=== PATIENT | female | born 1985 | race Caucasian/White ===

== ENCOUNTER 2016-10-20 22:19 | Emergency (ER) | payer OTHER ==
--- NOTE | 2016-10-20 23:07 | PD ---
HPI Chief Complaint Complains of cramping and then spotting some today Date Seen: October 20, 2016 Travel History International Travel<30 Days: No Contact w/Intl Traveler<30Days: No Known Affected Area: No History of Present Illness HPI Patient is 31-year-old white female at 27 weeks resents complaining of crampy pain for the last several days and then spotting noted today. Bleeding was minimal and only noted when she wiped. Her baby is active heart rate tracing is reactive and there are no contractions she denies any leakage of fluid or heavy vaginal bleeding. Patient sees Dr. Patel for care. Para: 0 : 1 History Social History Narrative Social History Is a athletics teacher Alcohol Use: No Tobacco Use: No Substance Abuse: No Allergies-Medications (Allergen,Severity, Reaction): Coded Allergies: No Known Allergies (Unverified , 10/20/16) Review of Systems General / Constitutional: No: Fever, Weight Gain, Chills, Other Eyes: No: Diploplia, Blurred Vision, Visual changes, Pain, Photophobia HENT: No: Headaches, Vertigo, Lightheadedness Cardiovascular: No: Irregular Rhythm, Chest Pain or Discomfort, Palpitations, Tachycardia, Syncope, Varicosities, Edema, Cyanosis Respiratory: No: Cough, Short of Breath, Other Gastrointestinal: Abdominal Pain, No: Nausea, Vomiting, Diarrhea Genitourinary: Vaginal Bleeding, No: Decreased Urinary Output, Oliguria Musculoskeletal: No: Limited ROM, Weakness, Cramping, Edema, Pain Skin: No Rash, No Itching, No Dryness, No Lumps, No Change in Pigmentation, No Change in Nails, No Alopecia, No Lesions Neurologic: No: Weakness, Dizziness, Syncope, Focal Abnormalities, Coordination Problem, Headache, Slurred Speech, Seizures Psychiatric: No: Depression, Suicidal Ideations, Homicidal Ideation Endocrine: No: Heat Intolerance, Cold Intolerance, Polydipsia, Polyuria, Other Physical Exam Narrative GENERAL: Well-nourished, well-developed patient. SKIN: Warm and dry. HEAD: Normocephalic and atraumatic. EYES: No scleral icterus. No injection or drainage. ENT: No nasal drainage noted. Mucous membranes pink. Airway patent. NECK: Supple, trachea midline. No JVD. CARDIOVASCULAR: Regular rate and rhythm without murmurs, gallops, or rubs. RESPIRATORY: Breath sounds equal bilaterally. No accessory muscle use. BREASTS: Bilateral exam showed no masses , no retractions, no nipple discharge. ABDOMEN/GI: Abdomen soft, non-tender, bowel sounds present, no rebound, no guarding Gravid to [-28] weeks size Fundal Height: [28-] GENITOURINARY: External Genitalia: intact and normal in appearance On vaginal exam there is some old brown blood in the vagina, minimal amount no red blood noted on the exam glove or in the vagina Cervix: [-Closed] Dilatation: [-] Closed Effacement: [-] Thick Station: [-3] Membranes: [intact ] Uterine Contractions: [-none] FHT's: Category: [1-] Baseline: [-144] Reactive: [-yes] Variability: [-mod] Decels: [-none] EXTREMITIES: No cyanosis or edema. BACK: Nontender without obvious deformity. No CVA tenderness. NEUROLOGICAL: Awake and alert. Motor and sensory grossly within normal limits. Five out of 5 muscle strength in all muscle groups. Normal speech. Data Data Orders Vital Signs (Adult) .ON ADMISSION (10/20/16 22:53) ^ Labor Status (10/20/16 22:53) Urinalysis - C+S If Indicated (10/20/16 22:53) MDM Interpretation(s) The patient is 31-year-old white female at 27 weeks gestation who presents combining of lower abdominal pain for several days and spotting today. Her bleeding is been minimal and only noted when she wipes with toilet paper. And on exam the night her bleeding is only old dark brown blood no red blood or fresh bleeding or active bleeding noted. heart tones within normal limits no contractions seen on exam her cervix is closed and posterior and only some brownish old blood noted on the exam glove no red bleeding noted urinalysis is pending at time of this dictation but that if that is positive and will treat with antibiotics. Plan Plan to observe the patient for any discomforts of offer pain medications hydrate her with by mouth fluids, she is encouraged use Tylenol for pain at home. 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 She will be discharged and follow up with her OB provider is as scheduled or sooner if symptoms persist Diagnosis Diagnosis: Primary Impression: Abdominal pain during in second trimester Additional Impression: Spotting affecting in second trimester Disposition: 01 DISCHARGE HOME Condition: Stable Patient Instructions: General Instructions Additional Instructions: RETURN FOR CONTRACTIONS, LOSS OF FLUID (WATER BREAKING), VAGINAL BLEEDING, OR DECREASED MOVEMENT DRINK 8-10 LARGE GLASSES OF WATER EVERY DAY KEEP SCHEDULED APPOINTMENT WITH YOUR PROVIDER Departure Forms: Tests/Procedures Russell Henderson II, MD October 20, 2016 23:07
[2016-10-20 23:09] LABS: BACTERIA, URINE RARE /hpf; BLOOD, URINE NEG (NEG); COMMENT (UR) CULT NOT INDICATED; CULTURE IF INDICATED CULT NOT INDICATED; GLUCOSE,URINE NEG (NEG); KETONE, URINE NEG (NEG); NITRITE,URINE NEG (NEG); SQUAMOUS EPITHELIAL CELL URINE <1 /hpf (0-5); URINE COLOR LIGHT-YELLOW (YELLW/STRAW)
== END 2016-10-21 06:46 | disposition home or self-care (01) ==
LOC: HOBED 22:19
DX: O26.852 Spotting complicating pregnancy, second trimester (principal); R10.9 Unspecified abdominal pain
CPT/HCPCS: 81001; 99284

== ENCOUNTER 2016-12-23 23:22 | Inpatient (IN) | payer OTHER ==
[~2016-12-23] VITALS: Ht 162.6 cm; Wt 105.2 kg
[2016-12-23] MEDS ORDERED: PREN1MIS19 (23:51)
[2016-12-23] MEDS ORDERED: ZANT150T2 PO (23:52)
[2016-12-24] VITALS (41 sets, daily range): BP systolic 109–166; BP diastolic 62–112; PULSE 73–102; RESP 16–20; TEMP 97.6–99; O2SAT 100
[2016-12-24] MEDS ORDERED: METH250T PO (00:11)
[2016-12-24] MEDS ORDERED: LACTATED RINGER'S 1000 ML INJ 1,000 ML IV PRN (00:14)
--- NOTE | 2016-12-24 00:14 | HHI.HP ---
History & Physical H&P HPI HPI Travel History International Travel<30 Days: No Contact w/Intl Traveler<30Days: No Known Affected Area: No History of Present Illness HPI Patient is a 31-year-old 1 para 0 EDC is January 16, 2017 presently at 36 weeks and 4 days she presents the chief complaint of spontaneous rupture of membranes at 10 PM, patient is grossly ruptured and the amnisure is positive No contractions states the baby is not moving that much however there is a category 1 tracing care with course is significant for failing the 1 hour GTT however the three-hour test was normal Blood pressure was elevated during this she was placed on Aldomet 250 mg by mouth twice a day History (Limited) History Past Medical History Narrative Medical No known drug allergies history of elevated blood pressure hypertension and migraines Obstetric History Obstetric History First baby Past Surgical History Surgical History: No Previous Surgery Family History Narrative Family History Diabetes and heart disease Social History Alcohol Use: No Tobacco Use: Yes Substance Abuse: No Allergies-Medications Allergies-Medications (Allergen,Severity, Reaction): Coded Allergies: No Known Allergies (Unverified , 12/23/16) Home Meds Reported Medications Ranitidine (Zantac)150 Mg Noo287 Mg PO BID #60 TAB Ref 0 12/23/16 Vit W/ Ferrous Fumara (Pnv Plus Multivi 27-1 & 312 mg)1 Mis Mis Daily 12/23/16 ROS Review of Systems Genitourinary: Other (rupture of membranes as per history of present illness) Physical Exam Physical Exam Narrative GENERAL: Well-nourished, well-developed patient. Alert oriented 3 and cooperative in no acute distress SKIN: Warm and dry. HEAD: Normocephalic and atraumatic. EYES: No scleral icterus. No injection or drainage. ENT: No nasal drainage noted. Mucous membranes pink. Airway patent. NECK: Supple, trachea midline. No JVD. CARDIOVASCULAR: Regular rate and rhythm without murmurs, gallops, or rubs. RESPIRATORY: Breath sounds equal bilaterally. No accessory muscle use. ABDOMEN/GI: Abdomen is gravid consistent with 37 weeks obese soft no epigastric or right upper quadrant tenderness no palpable contractions Gravid to [-] weeks size consistent with gestational age Fundal Height: [-] GENITOURINARY: Gross fluid per vagina External Genitalia: intact and normal in appearance BUS glands: [-] Cervix: [-] Posterior soft Dilatation: [-] 1 cm Effacement: [-] 60% effaced Station: [-] -3 station Presentation: [-] Vertex Membranes: [ ruptured] clear fluid Uterine Contractions: [-]0 FHT's: Category: [-] 1 Baseline: [-] 130 Reactive: [-] + Accelerations to 145 Variability: [-] Moderate Decels: [-] 0 EXTREMITIES: No cyanosis or edema. 2+ reflexes NEUROLOGICAL: Awake and alert. Motor and sensory grossly within normal limits. Five out of 5 muscle strength in all muscle groups. Normal speech. Data Data Data Vital Signs Reviewed: Yes (blood pressures 131/83 pulse is 101 she is afebrile) Orders Ob (2e) Additional Admit Info (12/23/16 23:49) Vital Signs (Adult) .ON ADMISSION (12/24/16 00:05) ^ Labor Status (12/24/16 00:05) Urinalysis - C+S If Indicated (12/24/16 00:05) ^ Hydration (12/24/16 00:05) Labs Category 1 tracing MDM MDM Medical Record Reviewed: No Interpretation(s) 31-year-old at 36 weeks and 4 days premature rupture membranes Obesity Hypertension Smoker Plan External monitoring Admit CBC CMP uric acid urinalysis type and screen Group B strep PCR swab Will start penicillin however if GBS is negative will discontinue Pitocin augmentation of labor to begin at 6 AM if contractions have not started on the wrong Discussed with Dr. Noonan Physician Communication Spoke with Dr. Noonan he agrees with evaluation and management sedates to begin Pitocin at 6 AM if contractions have not started by then Diagnosis Diagnosis: Primary Impression: with 36 completed weeks gestation Additional Impressions: premature rupture of membranes Qualified Code: O42.919 - premature rupture of membranes, unspecified duration to onset of labor Hypertension Qualified Code: I10 - Essential hypertension Vickie Posey MD Dec 24, 2016 00:13 Vickie Posey MD Dec 24, 2016 00:14
[2016-12-24] MEDS ORDERED: CITRIC ACID-SODIUM CITRATE LIQ 30 ML UDC PO SCH ×2 (00:15→19:00)
[2016-12-24] MEDS ORDERED: SODIUM CHLORID 0.9% 500 ML INJ 500 ML IV PRN (00:15)
[2016-12-24] MEDS ORDERED: OXYTOCIN 30 UNITS-500ML PREMIX 500 ML IV ONE ×2 (00:15→19:30)
[2016-12-24] MEDS ORDERED: LIDOCAINE HCL 1% 50 ML VIAL I-DERMAL PRN (00:15)
[2016-12-24] MEDS ORDERED: PENICILLIN G POTASSIUM INJ 5,000,000 UNITS in SODIUM CHLORIDE 0.9% INJ 100 ML IV ONE (00:15)
[2016-12-24] MEDS ORDERED: MINERAL OIL 10 ML VIAL TOPICAL PRN (00:15)
[2016-12-24] MEDS ORDERED: LIDOCAINE HCL 1% 50 ML VIAL INFIL PRN (00:15)
[2016-12-24] MEDS ORDERED: SODIUM CHLOR 0.9% 1000 ML INJ 1,000 ML IV PRN (00:34)
[2016-12-24 01:06] LABS: AUTOMATED NEUTROPHIL # 11.2 TH/MM3 (1.8-7.7); BASOPHIL % 0.2 % (0.0-2.0); EOSINOPHIL # 0.1 TH/MM3 (0-0.4); EOSINOPHIL % 1.1 % (0.0-4.0); HEMATOCRIT 33.5 % (35.0-46.0); HEMO FLAGS DIFF FINAL; LYMPH % 13.1 % (9.0-44.0); LYMPHOCYTE # 1.9 TH/MM3 (1.0-4.8); MEAN CELL VOLUME 90.1 FL (80.0-100.0); MEAN CORPUSCULAR HEMOGLOBIN 31.3 PG (27.0-34.0); MEAN CORPUSCULAR HGB CONC 34.8 % (32.0-36.0); MONO % 6.6 % (0.0-8.0); PLATELET COUNT 224 TH/MM3 (150-450); RED BLOOD COUNT 3.72 MIL/MM3 (4.00-5.30); RED CELL DISTRIBUTION WIDTH 13.7 % (11.6-17.2); WHITE BLOOD COUNT 14.2 TH/MM3 (4.0-11.0)
[2016-12-24 01:21] LABS: BACTERIA, URINE RARE /hpf; BLOOD, URINE SMALL (NEG); COMMENT (UR) CULT NOT INDICATED; CULTURE IF INDICATED CULT NOT INDICATED; GLUCOSE,URINE NEG (NEG); KETONE, URINE NEG (NEG); NITRITE,URINE NEG (NEG); SQUAMOUS EPITHELIAL CELL URINE 5 /hpf (0-5); URINE COLOR YELLOW (YELLW/STRAW)
[2016-12-24 01:45] LABS: ALT (GPT) 21 U/L (10-53); ANION GAP 9 MEQ/L (5-15); AST (GOT) 13 U/L (15-37); BICARBONATE 23.9 MEQ/L (21.0-32.0); BLOOD UREA NITROGEN 10 MG/DL (7-18); CHLORIDE 106 MEQ/L (98-107); GLOMERULAR FILTRATION RATE 120 ML/MIN (>89); POTASSIUM 3.8 MEQ/L (3.5-5.1); SODIUM (NA) 139 MEQ/L (136-145); URIC ACID 4.3 MG/DL (2.6-6.0)
[2016-12-24 01:48] LABS: ALKALINE PHOSPHATASE 86 U/L (45-117); TOTAL BILIRUBIN ADULT 0.2 MG/DL (0.2-1.0)
[2016-12-24] MEDS: LACTATED RINGER'S 1000 ML INJ 1,000 ML IV SCH ×2 (02:00→08:14)
[2016-12-24] MEDS ORDERED: PENICILLIN G POTASSIUM INJ 2,500,000 UNITS in SODIUM CHLORIDE 0.9% INJ 100 ML IV SCH ×2 (04:15→17:00)
[2016-12-24] MEDS ORDERED: OXYTOCIN 30 UNITS-500ML PREMIX 500 ML IV SCH (06:00)
[2016-12-24] MEDS ORDERED: fentaNYL 2MCG-BUPIV 0.125% INJ 100 ML ONE (10:15)
[2016-12-24] MEDS ORDERED: ePHEDrine/NS 25 MG/5 ML SYR ONE (10:21)
[2016-12-24] MEDS: LABETALOL HCL 100 MG TAB PO SCH (11:45)
--- NOTE | 2016-12-24 11:45 | PD.LABORPN ---
Subjective Subjective pt comfortable with epidural now Objective Vital Signs Vital Signs Date Time Temp Pulse Resp B/P Pulse Ox O2 Delivery O2 Flow Rate FiO2 12/24/16 11:31 76 147/82 12/24/16 10:43 97.6 18 12/24/16 10:40 83 139/70 12/24/16 10:31 96 163/88 12/24/16 10:30 85 12/24/16 10:25 102 12/24/16 10:22 98 162/108 12/24/16 10:20 87 12/24/16 10:01 84 141/94 12/24/16 09:31 84 166/89 12/24/16 09:30 16 12/24/16 09:19 84 148/86 12/24/16 08:31 82 153/86 12/24/16 08:31 98.4 18 12/24/16 08:07 81 155/86 12/24/16 08:01 73 12/24/16 07:31 83 159/95 12/24/16 07:01 80 142/83 12/24/16 06:30 98.2 18 12/24/16 06:30 90 158/112 12/24/16 06:26 83 149/81 Objective Pelvic Exam: Cervix:3/90/-3 lot Membranes ruptured 2300 Uterine Contractions: 3-5 min FHT's: Category: I Baseline: [-] Reactive: [-] Variability: [-] Decels: [-] Assessment/Plan Assessment and Plan 31 yo G1 with iup at 36w4d with prom 1) PROM- iol with pitocin, GBS neg 2) GHTN- on aldomet at home, weekly labs and testing. BP elevated with some severe range and 1+ protein, No previous proteinuria in office. Meets criteria for Pre-E. Labetalol 100mg bid. 3) Failed 1 hr gct, normal 3 hr gtt. 4) Abn quad, elevated risk for Down syndrome, neg cfDNA Zoë Porter MD Dec 24, 2016 11:44
[2016-12-24] MEDS ORDERED: ePHEDrine/NS 25 MG/5 ML SYR IV PRN (12:15)
[2016-12-24] MEDS ORDERED: fentaNYL 2MCG-BUPIV 0.125% 100 ML EPIDURAL SCH (12:15)
[2016-12-24] MEDS ORDERED: DO NOT ADMINISTER ANTICOAGULANTS PRN (12:15)
[2016-12-24] MEDS ORDERED: NO SYSTEM NARCOTICS PRN (12:15)
[2016-12-24] MEDS ORDERED: LACTATED RINGER'S 1000 ML INJ 1,000 ML IV ONE (17:26)
--- NOTE | 2016-12-24 17:31 | PD.LABORPN ---
Subjective Subjective Pt is having increased pain Objective Vital Signs Vital Signs Date Time Temp Pulse Resp B/P Pulse Ox O2 Delivery O2 Flow Rate FiO2 12/24/16 17:02 20 12/24/16 17:00 20 12/24/16 16:41 98 149/89 12/24/16 16:00 97.6 12/24/16 15:59 98 136/75 12/24/16 15:59 20 12/24/16 15:25 98 20 131/65 12/24/16 14:31 82 164/94 12/24/16 14:30 20 12/24/16 14:01 91 141/82 12/24/16 13:31 89 146/85 12/24/16 13:01 87 127/80 12/24/16 12:31 89 109/62 12/24/16 12:01 83 112/66 12/24/16 11:31 76 147/82 12/24/16 11:01 88 140/75 12/24/16 10:43 97.6 18 12/24/16 10:40 83 139/70 12/24/16 10:31 96 163/88 12/24/16 10:30 85 12/24/16 10:25 102 12/24/16 10:22 98 162/108 12/24/16 10:20 87 12/24/16 10:01 84 141/94 12/24/16 09:31 84 166/89 Objective Pelvic Exam: Cervix:5-6/80/-2. edema of cervix noted. LOT to OP presentation with molding present Membranesuptured] Uterine Contractions:adequate MVU FHT's: Category I Variability: mod Decels: [-] Assessment/Plan Assessment and Plan 31 yo G1 with iup at 36w5d with prom 1) PROM- iol with pitocin, GBS neg. She has arrest of dilation, likely cpd. Discussed findings of cervical edema, no exchange underwriting consultant last 2 checks, and molding ; discussed cd is best choice at this time. PT and mother agreeable to plan. 2) GHTN- on aldomet at home, weekly labs and testing. BP elevated with some severe range and 1+ protein, No previous proteinuria in office. Meets criteria for Pre-E. Labetalol 100mg bid started. 3) Failed 1 hr gct, normal 3 hr gtt. 4) Abn quad, elevated risk for Down syndrome, neg cfDNA Zoë Porter MD Dec 24, 2016 17:31
[2016-12-24] MEDS ORDERED: OXYTOCIN 10 UNIT/ML AMP ONE (17:50)
[2016-12-24] MEDS ORDERED: LACTATED RINGER'S 1000 ML INJ 1,000 ML IV SCH (18:00)
[2016-12-24] MEDS ORDERED: EPIDURAL-DIPHENHYDRAMINE HCL 50 MG/ML VIAL IV PUSH PRN (18:30)
[2016-12-24] MEDS ORDERED: ceFAZolin 2 GM PREMIX 50 ML IV SCH (18:30)
[2016-12-24] MEDS ORDERED: EPIDURAL-DO NOT ADMINISTER ANTICOAGULANTS PRN (18:30)
[2016-12-24] MEDS ORDERED: EPIDURAL-NO SYSTEMIC NARCOTICS PRN (18:30)
[2016-12-24] MEDS ORDERED: LIDOCAINE HCL PF 2% VIAL EPIDURAL ONE (18:30)
[2016-12-24] MEDS ORDERED: SODIUM BICARBONATE 8.4% INJ 50 MEQ/50 ML SYR IV PUSH ONE (18:30)
[2016-12-24] MEDS ORDERED: EPIDURAL-NALOXONE HCL 0.4 MG/ML AMP IV PRN (18:30)
[2016-12-24] MEDS ORDERED: EPIDURAL-DIPHENHYDRAMINE HCL 50 MG CAP PO PRN (18:30)
[2016-12-24] MEDS ORDERED: MORPHINE SULFATE PF 5 MG/10 ML VIAL ONE (19:13)
[2016-12-24] MEDS ORDERED: ONDANSETRON HCL 4 MG/2 ML VIAL ONE (19:14)
--- NOTE | 2016-12-24 19:25 | PD.OB.DELI ---
Procedure Note Section Procedure Pre Op Diagnosis: (1) with 36 completed weeks gestation (2) premature rupture of membranes (3) Pre-eclampsia superimposed on chronic hypertension (4) Arrested active phase of labor Post Op Diagnosis: (1) with 36 completed weeks gestation (2) premature rupture of membranes (3) Pre-eclampsia superimposed on chronic hypertension (4) Arrested active phase of labor Performed by Zoë Porter Procedure: Primary Low Transverse Sec Indication for delivery: malposition (OP, asynclitic) Informed consent obtained: For anesthesia, For procedure Confirmed correct: Patient, Procedure, Site, Time-out taken Anesthesia: Epidural Medication prior to procedure: As documented in eMAR Monitoring during procedure: Blood pressure monitoring, Pulse oximetry Urinary catheter: Inserted using sterile technique, To dependent drainage, ml urine output (400) Sterile preparation: Duraprep Position: Supine with wedge to right side, Supine with safety belt applied Operative Features Skin Incision: Pfannenstiel Uterine Incision: Low transverse w/knife / blunt ext Membranes Ruptured: Previously, Appearance of fluid (clear) Presentation: Occiput posterior Delivery of infant: Uneventful : Female One Minute : 9 Five Minute : 9 Weight: 3120g Status of : Viable, Cord blood Placenta delivered: Retained (manual removal, sharp curettage performed), Sent to pathology Medications: Antibiotics, Oxytocin Estimated blood loss: 600ml Procedure tolerated: Well Maternal Condition: Stable Condition: Stable Procedure in detail dictated Zoë Porter MD Dec 24, 2016 19:25
[2016-12-24] MEDS ORDERED: ACETAMINOPHEN 1000 MG/100 ML VIAL IV ONE ×2 (19:30→19:55)
[2016-12-24] MEDS ORDERED: ZOLPIDEM TARTRATE 5 MG TAB PO PRN (19:30)
[2016-12-24] MEDS ORDERED: SIMETHICONE 80 MG CHEWABLE TAB PO PRN (19:30)
[2016-12-24] MEDS ORDERED: SODIUM CHLORIDE 0.9% FLUSH 10 ML FLUSH IV FLUSH PRN (19:30)
[2016-12-24] MEDS ORDERED: ACETAMINOPHEN 325 MG TAB PO PRN (19:30)
[2016-12-24] MEDS ORDERED: ONDANSETRON HCL 4 MG/2 ML VIAL IV PUSH PRN (19:30)
[2016-12-24] MEDS ORDERED: OXYTOCIN 30 UNITS-500ML PREMIX 500 ML ONE (19:55)
[2016-12-24] MEDS ORDERED: SODIUM CHLORIDE 0.9% FLUSH 10 ML FLUSH IV FLUSH SCH (21:00)
[2016-12-25] MEDS ORDERED: LACTATED RINGER'S 1000 ML INJ 1,000 ML IV SCH (00:16)
[2016-12-25 00:30] VITALS: BP 128/71; PULSE 83; RESP 18; TEMP 99.2
[2016-12-25 04:55] VITALS: BP 113/77; PULSE 91; RESP 18; TEMP 99.2
[2016-12-25] MEDS ORDERED: OXYTOCIN 30 UNITS-500ML PREMIX 500 ML IV PRN (05:30)
[2016-12-25] MEDS: IBUPROFEN 600 MG TAB PO PRN ×3 (05:38→18:19)
[2016-12-25] MEDS: oxyCODONE/ACETAMINOPHEN 5 MG/325 MG TAB PO PRN ×3 (05:38→22:48)
[2016-12-25 06:16] LABS: AUTOMATED NEUTROPHIL # 10.1 TH/MM3 (1.8-7.7); BASOPHIL % 0.3 % (0.0-2.0); EOSINOPHIL # 0.1 TH/MM3 (0-0.4); EOSINOPHIL % 0.8 % (0.0-4.0); HEMO FLAGS DIFF FINAL; LYMPH % 9.7 % (9.0-44.0); LYMPHOCYTE # 1.2 TH/MM3 (1.0-4.8); MEAN CELL VOLUME 90.7 FL (80.0-100.0); MEAN CORPUSCULAR HEMOGLOBIN 31.5 PG (27.0-34.0); MEAN CORPUSCULAR HGB CONC 34.7 % (32.0-36.0); MONO % 7.3 % (0.0-8.0); NEUT % 81.9 % (16.0-70.0); PLATELET COUNT 156 TH/MM3 (150-450); RED CELL DISTRIBUTION WIDTH 13.7 % (11.6-17.2); WHITE BLOOD COUNT 12.4 TH/MM3 (4.0-11.0)
--- NOTE | 2016-12-25 07:57 | HHI.OB ---
Subjective Post Operative Day: 1 Remarks Doing well resting daughter in normal nursery Objective Vitals/I&O Vital Signs Date Time Temp Pulse Resp B/P Pulse Ox O2 Delivery O2 Flow Rate FiO2 12/25/16 04:55 99.2 91 18 113/77 12/25/16 00:30 99.2 83 18 128/71 12/24/16 21:10 98.9 93 18 124/75 12/24/16 20:15 18 100 12/24/16 20:15 99.0 12/24/16 20:15 93 150/70 12/24/16 20:00 100 12/24/16 20:00 94 18 134/64 12/24/16 19:31 123/75 12/24/16 19:31 91 20 100 12/24/16 19:13 117/63 12/24/16 19:13 92 18 100 12/24/16 19:12 98.8 12/24/16 17:02 20 12/24/16 17:00 20 12/24/16 16:41 98 149/89 12/24/16 16:00 97.6 12/24/16 15:59 98 136/75 12/24/16 15:59 20 12/24/16 15:25 98 20 131/65 12/24/16 14:31 82 164/94 12/24/16 14:30 20 12/24/16 14:01 91 141/82 12/24/16 13:31 89 146/85 12/24/16 13:01 87 127/80 12/24/16 12:31 89 109/62 12/24/16 12:01 83 112/66 12/24/16 11:31 76 147/82 12/24/16 11:01 88 140/75 12/24/16 10:43 97.6 18 12/24/16 10:40 83 139/70 12/24/16 10:31 96 163/88 12/24/16 10:30 85 12/24/16 10:25 102 12/24/16 10:22 98 162/108 12/24/16 10:20 87 12/24/16 10:01 84 141/94 12/24/16 09:31 84 166/89 12/24/16 09:30 16 12/24/16 09:19 84 148/86 12/24/16 08:31 82 153/86 12/24/16 08:31 98.4 18 12/24/16 08:07 81 155/86 12/24/16 08:01 73 Result Diagram: 12/25/16 0528 12/24/16 0040 Objective Remarks GENERAL: Well-nourished, well-developed patient. CARDIOVASCULAR: Regular rate and rhythm without murmurs, gallops, or rubs. RESPIRATORY: Breath sounds equal bilaterally. No accessory muscle use. ABDOMEN/GI: Abdomen soft, non-tender, bowel sounds present. Incision: Clean, dry and intact. gary in place Fundus: Firm, non-tender at umbilicus. GENITOURINARY: Light to moderate bleeding. EXTREMITIES: No cyanosis 2+ edema non-tender, without signs of DVT. Medications and IVs Current Medications Medications (Trade) Dose Ordered Sig/Pipo Route Start Time Stop Time Status Last Admin Labetalol HCl 100 mg 100 mg Q12HR PO 12/24/16 09:00 12/24/16 11:45 (Lr 1000 ml Inj) 1,000 ml @ 100 mls/hr Q10H IV 12/25/16 00:16 12/25/16 20:15 (NS Flush) 2 ml BID IV FLUSH 12/24/16 21:00 (NS Flush) 2 ml UNSCH PRN IV FLUSH 12/24/16 19:30 (Mylicon Chew) 80 mg QID PRN PO 12/24/16 19:30 (Tylenol) 650 mg Q6H PRN PO 12/24/16 19:30 (Motrin) 600 mg Q6H PRN PO 12/24/16 19:30 12/25/16 05:38 (Percocet 5-325 Mg) 1 tab Q4H PRN PO 12/24/16 19:30 12/25/16 05:38 (Percocet 5-325 Mg) 2 tab Q4H PRN PO 12/24/16 19:30 (Danielle-Colace) 2 tab Q12H PRN PO 12/24/16 19:30 (Ambien) 5 mg HS PRN PO 12/24/16 19:30 (M-M-R Ii Inj) 0.5 ml ONCE ONCE SQ 12/25/16 16:00 12/25/16 16:01 (Boostrix Inj) 0.5 ml ONCE ONCE IM 12/25/16 16:00 12/25/16 16:01 (Zofran Inj) 4 mg Q6H PRN IV PUSH 12/24/16 19:30 Miscellaneous Information NO SYSTEMIC NARCOTICS TO BE GIVEN FO... UNSCH PRN .XX 12/24/16 18:30 12/25/16 18:29 (Narcan Inj) 0.4 mg UNSCH PRN IV 12/24/16 18:30 12/25/16 18:29 (Benadryl Inj) 25 mg Q6H PRN IV PUSH 12/24/16 18:30 12/25/16 18:29 (Benadryl) 50 mg Q6H PRN PO 12/24/16 18:30 12/25/16 18:29 Miscellaneous Information ALL NURSING DEPARTMENTS UNSCH PRN .XX 12/24/16 18:30 12/25/16 18:29 Assessment/Plan Assessment and Plan unremarkable POD 1 advance as tolerated anticipate discharge POD 3 Maribell Patel MD Dec 25, 2016 07:57
[2016-12-25] MEDS: LABETALOL HCL 100 MG TAB PO SCH ×2 (09:00→22:48)
[2016-12-25 09:45] VITALS: BP 148/88; PULSE 90; RESP 18; TEMP 99.1
--- NOTE | 2016-12-25 10:54 | MP ---
cc: FARRAH PORTER MD DATE OF SURGERY 12/24/2016 PREOPERATIVE DIAGNOSES 1. Intrauterine at 36 weeks and 5 days. 2. Preeclampsia. 3. Premature rupture of membranes. 4. Arrest of dilation. 5. Malpresentation OP. 6. Abnormal 1 hour GCT with a normal 3 hour. 7. Abnormal Quad screen with normal cell-free DNA testing. POSTOPERATIVE DIAGNOSES 1. Intrauterine at 36 weeks and 5 days. 2. Preeclampsia. 3. Premature rupture of membranes. 4. Arrest of dilation. 5. Malpresentation OP. 6. Abnormal 1 hour GCT with a normal 3 hour. 7. Abnormal Quad screen with normal cell-free DNA testing. PROCEDURE PERFORMED Primary low transverse delivery. SURGEON Farrah Porter MD QC ANALYST [employer] ANESTHESIA Epidural. IV FLUIDS 1500 mL of lactated Ringer's ESTIMATED BLOOD LOSS 600 mL. URINE OUTPUT 400 mL clear yellow urine at the end of the case. SPECIMEN SENT Cord blood. COMPLICATIONS None. COUNTS Correct x 3. PREOPERATIVE ANTIBIOTIC Ancef 2 grams IV given pre-incision. DVT PROPHYLAXIS SCDs about her extremities. INTRAOPERATIVE FINDINGS 1. Viable female with Apgars of 9 and 9 at 1 minute and 5 minutes respectively. 2. Loose cord around neck. 3. Presentation LOP, occiput left posterior. 4. Asynclitic. 5. Amniotic fluid clear. 6. Placenta very aged in appearance. A segment was abnormally adherent, was removed manually. 7. Maternal anatomy - tubes, uterus and ovaries within normal limits. PROCEDURE IN DETAIL After review of informed consent, the patient was taken to the operating room where epidural was re-dosed. A Nash was already in place. The abdomen was prepped and draped in normal sterile fashion. Retractors were placed to aid with retraction. A Pfannenstiel skin incision was made with a scalpel and carried down to the underlying layer of fascia with the Bovie. The Bovie was incised in the midline. This is extended bilaterally with Medel scissors. There was a perforating fractal vessel that was bleeding on the right lower aspect of the rectus muscle. Attempts at Bovie coagulation was performed. Due to continued bleeding, a [id number] with 2-0 chromic was performed with good hemostasis. Gladys clamps were placed on the superior aspect of the fracture and rectus muscles dissected off bluntly. The same was repeated inferiorly. The rectus muscles were in the midline. The peritoneum was entered bluntly and extended bluntly. The bladder blade was placed. The bladder flap was created with Metzenbaum scissors and further developed with the index finger. The bladder blade was then replaced. A low transverse uterine incision was made with the scalpel. This incision was extended bluntly. The head was brought to the level of the hysterotomy. Gentle fundal pressure was used to deliver the head. There was a loose cord around the neck; this was reduced. Gentle fundal pressure was used to delivery the rest of the body. Cord clamping was performed immediately. The infant was handed off to awaiting nursery team. Pitocin infusion was started immediately after delivery of the infant. Gentle uterine massage and cord traction was used to deliver the majority of the placenta. One portion of the placenta was still adherent. The uterus was exteriorized and a hand was placed between the placenta and the uterus to remove the remaining . Then moistened lap was used to clear the remaining membranes. A sharp curettage was performed to ensure the remaining products was present. Irrigation of the uterine cavity was performed and then a moist laparotomy sponge used again to clean the uterine cavity. The uterus was closed in two layers, the first with a running locked layer followed by a second running layer. Good hemostasis was noted. The posterior cul-de-sac was irrigated and suctioned. The uterus was returned to the abdomen. Good hemostasis was noted in the hysterotomy. The anterior cul-de-sac was irrigated and suctioned. The peritoneum was closed with 2-0 chromic in a running fashion. The fascia was closed with #1 Vicryl in a running fashion with two separate sutures. The subcutaneous layer was irrigated and good hemostasis was noted. The subcutaneous layer was closed with two layers of 2-0 chromic. The skin was closed with gary. A pressure dressing was placed. The patient tolerated the procedure well. She was sent to the PACU in stable condition. She had normal blood pressures to mild range blood pressures throughout the entire procedure. Farrah Porter MD PE/PIPE /7:17 PM /10:17 AM
[2016-12-25] MEDS: DOCUSATE SODIUM 50 MG/SENNA 8.6 MG TAB PO PRN (12:46)
[2016-12-25 13:08] VITALS: BP 138/78; PULSE 86; RESP 16; TEMP 98.3
[2016-12-25] MEDS ORDERED: MEASLES, MUMPS, RUBELLA VACCINE 0.5 ML VIAL SQ ONE (16:00)
[2016-12-25] MEDS ORDERED: DIPHTH/TETANUS/ACEL PERTUSSIS (BOOSTER) 0.5 ML VIAL/PFS IM ONE (16:00)
[2016-12-25 22:00] VITALS: BP 141/78; PULSE 83; RESP 18; TEMP 98.4
[2016-12-26] MEDS: IBUPROFEN 600 MG TAB PO PRN ×3 (01:47→15:00)
[2016-12-26] MEDS: oxyCODONE/ACETAMINOPHEN 5 MG/325 MG TAB PO PRN ×4 (05:20→19:46)
[2016-12-26 08:06] VITALS: BP 148/80; PULSE 94; RESP 16; TEMP 98.2
[2016-12-26] MEDS: DOCUSATE SODIUM 50 MG/SENNA 8.6 MG TAB PO PRN (09:32)
[2016-12-26] MEDS: LABETALOL HCL 100 MG TAB PO SCH ×2 (09:33→21:50)
[2016-12-26 11:00] VITALS: BP 144/81
--- NOTE | 2016-12-26 11:24 | HHI.OB ---
Subjective Post Operative Day: 2 Remarks POD#2, Stable, no significant c/o Objective Vitals/I&O Vital Signs Date Time Temp Pulse Resp B/P Pulse Ox O2 Delivery O2 Flow Rate FiO2 12/26/16 08:06 94 16 148/80 12/26/16 08:06 98.2 12/25/16 22:00 98.4 83 18 141/78 12/25/16 13:08 98.3 86 16 138/78 Result Diagram: 12/25/16 0528 12/24/16 0040 Objective Remarks GENERAL: Well-nourished, well-developed patient. CARDIOVASCULAR: Regular rate and rhythm without murmurs, gallops, or rubs. RESPIRATORY: Breath sounds equal bilaterally. No accessory muscle use. ABDOMEN/GI: Abdomen soft, non-tender, bowel sounds present. Incision: Clean, dry and intact. gary in place Fundus: Firm, non-tender at umbilicus. GENITOURINARY: Light to moderate bleeding. EXTREMITIES: No cyanosis 2+ edema non-tender, without signs of DVT. Medications and IVs Current Medications Medications (Trade) Dose Ordered Sig/Pipo Route Start Time Stop Time Status Last Admin (Trandate) 100 mg Q12HR PO 12/24/16 09:00 12/26/16 09:33 (NS Flush) 2 ml BID IV FLUSH 12/24/16 21:00 (NS Flush) 2 ml UNSCH PRN IV FLUSH 12/24/16 19:30 (Mylicon Chew) 80 mg QID PRN PO 12/24/16 19:30 (Tylenol) 650 mg Q6H PRN PO 12/24/16 19:30 12/25/16 12:46 (Motrin) 600 mg Q6H PRN PO 12/24/16 19:30 12/26/16 09:32 (Percocet 5-325 Mg) 1 tab Q4H PRN PO 12/24/16 19:30 12/25/16 22:48 (Percocet 5-325 Mg) 2 tab Q4H PRN PO 12/24/16 19:30 12/26/16 09:33 (Danielle-Colace) 2 tab Q12H PRN PO 12/24/16 19:30 12/26/16 09:32 (Ambien) 5 mg HS PRN PO 12/24/16 19:30 (Zofran Inj) 4 mg Q6H PRN IV PUSH 12/24/16 19:30 Assessment/Plan Assessment and Plan unremarkable POD 2 advance as tolerated considering discharge today? will need to be seen within the next 2 days for removal of gary Discharge Planning Routine, If she is discharged today will return to office within next 2 days to remove gary Attending Attestation seen by Teddy Salamanca MD Dec 26, 2016 11:24
[2016-12-26] MEDS ORDERED: IBUP-232 PO (11:25)
[2016-12-26] MEDS ORDERED: OXYC1TAB63 PO (11:25)
[2016-12-26] MEDS ORDERED: LABE100T2 PO (11:35)
[2016-12-26 19:45] VITALS: BP 150/84; PULSE 86; RESP 18; TEMP 98
[2016-12-27] MEDS: oxyCODONE/ACETAMINOPHEN 5 MG/325 MG TAB PO PRN ×4 (01:21→16:01)
[2016-12-27] MEDS: IBUPROFEN 600 MG TAB PO PRN ×3 (01:21→16:00)
[2016-12-27] MEDS: DOCUSATE SODIUM 50 MG/SENNA 8.6 MG TAB PO PRN (01:47)
[2016-12-27 08:00] VITALS: BP 165/91; PULSE 86; RESP 16; TEMP 98
--- NOTE | 2016-12-27 08:26 | HHI.DCPOC ---
Discharge Care Plan Report Symptoms to Your Doctor -Temperature above 100.5 degrees -Redness, of incision or excessive or foul smelling drainage -Unusual pain or calf pain -Increased vaginal bleeding -Painful or difficulty urinating -Feelings of extreme sadness or anxiety after 2 weeks Goals to Promote Your Health * To prevent worsening of your condition and complications * To maintain your health at the optimal level Directions to Meet Your Goals Take your medications as prescribed Follow your dietary instruction Follow activity as directed Ensure plenty of rest for recovery Drink fluids for hydration Keep your appointments as scheduled Take your immunizations and boosters as scheduled If your symptoms worsen call your PCP, if no PCP go to Urgent Care Center or Emergency Room Smoking is Dangerous to Your Health. Avoid second hand smoke Call the 24-hour crisis hotline for domestic abuse at Maribell Patel MD Dec 27, 2016 08:26
--- NOTE | 2016-12-27 08:26 | HHI.OB ---
Subjective Post Operative Day: 3 Remarks doing well overall no headache, nausea, blurred vision still quite swollen pain controlled concerned with elevation in BP this am but no symptoms was on aldomet last two weeks of gestation Objective Vitals/I&O Vital Signs Date Time Temp Pulse Resp B/P Pulse Ox O2 Delivery O2 Flow Rate FiO2 12/26/16 19:45 98.0 18 12/26/16 19:45 86 150/84 12/26/16 11:00 144/81 Result Diagram: 12/25/16 0528 12/24/16 0040 Objective Remarks GENERAL: Well-nourished, well-developed patient. CARDIOVASCULAR: Regular rate and rhythm without murmurs, gallops, or rubs. RESPIRATORY: Breath sounds equal bilaterally. No accessory muscle use. ABDOMEN/GI: Abdomen soft, non-tender, bowel sounds present. Incision: Clean, dry and intact. gary in place Fundus: Firm, non-tender at umbilicus. GENITOURINARY: Light to moderate bleeding. EXTREMITIES: No cyanosis 2+ edema non-tender, without signs of DVT. Medications and IVs Current Medications Medications (Trade) Dose Ordered Sig/Pipo Route Start Time Stop Time Status Last Admin (Trandate) 100 mg Q12HR PO 12/24/16 09:00 12/26/16 21:50 (NS Flush) 2 ml BID IV FLUSH 12/24/16 21:00 (NS Flush) 2 ml UNSCH PRN IV FLUSH 12/24/16 19:30 (Mylicon Chew) 80 mg QID PRN PO 12/24/16 19:30 12/27/16 01:47 (Tylenol) 650 mg Q6H PRN PO 12/24/16 19:30 12/25/16 12:46 (Motrin) 600 mg Q6H PRN PO 12/24/16 19:30 12/27/16 01:21 (Percocet 5-325 Mg) 1 tab Q4H PRN PO 12/24/16 19:30 12/25/16 22:48 (Percocet 5-325 Mg) 2 tab Q4H PRN PO 12/24/16 19:30 12/27/16 06:20 (Danielle-Colace) 2 tab Q12H PRN PO 12/24/16 19:30 12/27/16 01:47 (Ambien) 5 mg HS PRN PO 12/24/16 19:30 (Zofran Inj) 4 mg Q6H PRN IV PUSH 12/24/16 19:30 Assessment/Plan Assessment and Plan POD 3 mild elevations in BP with absence of symptoms gary out today can take aldomet that she has if BP at home >150/90 has own cuff counseled in detail on symptoms of pre eclampsia see Dr. Porter on Saturday Discharge Planning Routine, If she is discharged today will return to office within next 2 days to remove gary Maribell Patel MD Dec 27, 2016 08:26
[2016-12-27] MEDS: LABETALOL HCL 100 MG TAB PO SCH (09:01)
== END 2016-12-27 19:20 | disposition home or self-care (01) | DRG 765 ==
LOC: HOBED 23:22 → H2EB 23:53 → H1EA 12-24 20:31
PROVIDERS: ADMIT Obstetrics & Gynecology; ATTEND Obstetrics & Gynecology
PROC: 10D00Z1 Extraction of Products of Conception, Low, Open Approach (ICD-10-PCS; principal; 2016-12-24)
PROC: 0UB90ZZ Excision of Uterus, Open Approach (ICD-10-PCS; 2016-12-24)
PROC: 3E033VJ Introduction of Other Hormone into Peripheral Vein, Percutaneous Approach (ICD-10-PCS; 2016-12-24)
PROC: 00HU33Z Insertion of Infusion Device into Spinal Canal, Percutaneous Approach (ICD-10-PCS; 2016-12-24)
PROC: 3E0R3CZ (ICD-10-PCS; 2016-12-24)
DX: O42.913 Preterm premature rupture of membranes, unspecified as to length of time between rupture and onset of labor, third trimester (principal); O10.02 Pre-existing essential hypertension complicating childbirth; E66.9 Obesity, unspecified; O99.214 Obesity complicating childbirth; O99.334 Smoking (tobacco) complicating childbirth; Z68.39 Body mass index [BMI] 39.0-39.9, adult; O14.94 Unspecified pre-eclampsia, complicating childbirth; O62.0 Primary inadequate contractions; O69.81X0 Labor and delivery complicated by cord around neck, without compression, not applicable or unspecified; O32.8XX0 Maternal care for other malpresentation of fetus, not applicable or unspecified; O73.0 Retained placenta without hemorrhage; Z3A.36 36 weeks gestation of pregnancy; Z37.0 Single live birth; O62.1 Secondary uterine inertia
CPT/HCPCS: 59025; 80053; 81001; 84112; 84550; 85025; 86850; 86900; 86901; 87081; 87150; 88307; 90715; 96374; J0131; J0690; J2274; J2405; J2540; J2590; J3010; J7040; J7120

== ENCOUNTER 2016-12-29 12:07 | Emergency (ER) | payer OTHER ==
[~2016-12-29] VITALS: Ht 162.6 cm; Wt 104.0 kg
[~2016-12-29 12:07] MED LIST: IBUP-232 PO; LABE100T2 PO; OXYC1TAB63 PO; PREN1MIS19; ZANT150T2 PO
[2016-12-29 12:13] VITALS: BP 162/79; PULSE 84; RESP 20; TEMP 98.2; O2SAT 99
--- NOTE | 2016-12-29 12:48 | PD ---
HPI . The patient called me this morning and said her incision had a bad odor and was red. Chief Complaint: Abnormal Results Time Seen by Provider: 07:38 Travel History International Travel<30 days: No Contact w/Intl Traveler<30days: No Traveled to known affect area: No History of Present Illness HPI Velia had a section 6 days ago. She called me this morning complaining of a foul-smelling odor from her and that the incision may be opening up. She denies any fevers or chills no nausea or vomiting. She is tolerating her diet well and the pain is fairly well controlled but she is running out of Percocets. I told her to come into the emergency room for evaluation. History Social History Alcohol Use: No Tobacco Use: Yes Allergies-Medications (Allergen,Severity, Reaction): Coded Allergies: No Known Allergies (Unverified , 12/23/16) Reported Meds & Prescriptions Reported Meds & Active Scripts Active Labetalol (Labetalol HCl) 100 Mg Tab 100 Mg PO Q12HR Oxycodone-Acetaminophen 5-325 mg Tab 1 Tab PO Q4H PRN Ibuprofen 600 Mg Tab 600 Mg PO Q6H PRN Reported Zantac (Ranitidine HCl) 150 Mg Tab 150 Mg PO BID Pnv Plus Multivi 27-1 & 312 mg ( Vit W/ Ferrous Fumara) 1 Mis Mis DAILY Physical Exam Narrative Her abdomen is soft and nontender. The fundus is nontender and 3 fingerbreadths below the umbilicus. Her section scar is red and has a foul odor. Palpation of the area I cannot see any drainage to collect a culture I washed the incision with water Her lower extremities are edematous multiple scratch boykin from her epidural narcotics Data Data Last Documented VS [facility] Medical Decision Making Medical Screen Exam Complete: Yes Emergency Medical Condition: No Medical Record Reviewed: Yes Differential Diagnosis Postoperative wound infection. I will start her on some Bactrim DS for 7 days and she will follow-up with Dr. Porter on Saturday I instructed her to keep the wound clean and dry and to take her antibiotics as instructed. She should see improvement in 2 days. Zev Loza MD Dec 29, 2016 12:48 I will start her on some Bactrim DS for 7 days and she will follow-up with Dr. Porter on [place] I instructed her to keep the wound clean and dry and to take her antibiotics as instructed. She should see improvement in 2 days. Zev Loza MD Dec 29, 2016 12:48
== END 2016-12-29 12:53 | disposition home or self-care (01) ==
LOC: NEPK 12:07
DX: O86.0 Infection of obstetric surgical wound (principal)
CPT/HCPCS: 99282